=== PATIENT | male | born 1935 | race African-American/Black ===

== ENCOUNTER 2016-05-24 12:21 | Emergency (ER) | payer OTHER ==
[2016-05-24 12:40] VITALS: RESP 14; TEMP 97.5
--- NOTE | 2016-05-24 14:11 | UCPHY ---
H & P Patient Type: New Chief Complaint Nursing Narrative: tired, fatigue and BP of 180/80 this AM. Had the flu 2 weeks ago. Time Seen by Provider: 05/24/16 13:52 HPI/ROS: This patient presents with a chief complaint of extreme fatigue and weakness which has been present for several weeks. He denies other symptoms as reflected in the review of systems below. Today at home his blood pressure was noted to be mildly elevated at 180 over 80. 2 weeks ago he was diagnosed with flu. REVIEW OF SYSTEMS: Constitutional: Extreme fatigue, malaise, no fever Eyes: No complaints ENT: Denies sore throat, nasal congestion, ear pain. Some itching to the left side of the face Respiratory: Mild cough, no shortness of breath Cardiac: Denies chest pain Gastrointestinal: Good appetite, denies nausea, vomiting, diarrhea, constipation Genitourinary: Denies symptoms Musculoskeletal: No myalgias, no calf pain, no leg swelling, Skin: Denies rash Neurological: Denies headache Source: Patient, RN notes reviewed Exam Limitations: Language barrier - Personal History Current Tetanus Diphtheria and Acellular Pertussis (TDAP): Unsure - Medical/Surgical History Hx Asthma: No Hx Chronic Respiratory Disease: No Hx Diabetes: No Hx Cardiac Disease: Yes Hx Renal Disease: No Hx Cirrhosis: No Hx Alcoholism: No Hx HIV/AIDS: No Hx Splenectomy or Spleen Trauma: No Other PMH: HTN, high cholesterol - Family History Significant Family History: No pertinent family hx - Physical Exam Exam: GENERAL: Well-appearing, well-nourished and in no acute distress. HEAD: Atraumatic, normocephalic. EYES: Pupils equal round and reactive to light, extraocular movements intact, sclera anicteric, conjunctiva are normal. ENT: nares patent, oropharynx clear without exudates. Moist mucous membranes. NECK: Normal range of motion, supple without lymphadenopathy or JVD. LUNGS: Breath sounds clear to auscultation bilaterally and equal. No wheezes rales or rhonchi. HEART: Regular rate and rhythm without murmurs, rubs or gallops. ABDOMEN: Soft, nontender, normoactive bowel sounds. No guarding, no rebound. No masses appreciated. EXTREMITIES: Normal range of motion, trace edema both lower extremities. No clubbing or cyanosis. NEUROLOGICAL: Cranial nerves II through XII grossly intact. Normal speech, normal gait. PSYCH: Normal mood, normal affect. SKIN: Warm, dry, normal turgor, no visible rashes or lesions. Constitutional: Initial Vital Signs Temperature (C) 36.4 C 05/24/16 12:34 Heart Rate 66 05/24/16 12:34 Respiratory Rate 14 05/24/16 12:34 Blood Pressure 166/66 H 05/24/16 12:34 O2 Sat (%) 95 05/24/16 12:34 O2 Delivery Mode Room Air Allergies/Adverse Reactions: No Known Allergies Allergy (Unverified 05/24/16 12:33) Home Medications: Medication Instructions Recorded HCTZ (*) 05/24/16 Lipitor 20 mg (*) 05/24/16 VITAMIN D 05/24/16 Medical Decision Making Differential Diagnosis: Because of this patient's fatigue is unclear at this time however could be secondary to his recovery from his recent influenza. There is no evidence of an acute infectious process, anemia, liver disease, electrolyte imbalance or renal disease. - Data Points Laboratory Results: Laboratory Results 05/24/16 14:15 05/24/16 14:15 05/24/16 05/24/16 14:15 14:15 WBC 5.90 10^3/uL 10^3/uL (3.80-9.50) RBC 4.73 10^6/uL 10^6/uL (4.40-6.38) Hgb 14.3 g/dL g/dL (13.7-17.5) Hct 42.7 % % (40.0-51.0) MCV 90.3 fL fL (81.5-99.8) MCH 30.2 pg pg (27.9-34.1) MCHC 33.5 g/dL g/dL (32.4-36.7) RDW 13.8 % % (11.5-15.2) Plt Count 259 10^3/uL 10^3/uL (150-400) MPV 10.6 fL fL (8.7-11.7) Neut % (Auto) 59.5 % % (39.3-74.2) Lymph % (Auto) 26.1 % % (15.0-45.0) [place] % (Auto) 9.8 % % (4.5-13.0) Eos % (Auto) 3.4 % % (0.6-7.6) Baso % (Auto) 0.7 % % (0.3-1.7) Nucleat RBC Rel Count 0.0 % % (0.0-0.2) Absolute Neuts (auto) 3.51 10^3/uL 10^3/uL (1.70-6.50) Absolute Lymphs (auto) 1.54 10^3/uL 10^3/uL (1.00-3.00) Absolute Monos (auto) 0.58 10^3/uL 10^3/uL (0.30-0.80) Absolute Eos (auto) 0.20 10^3/uL 10^3/uL (0.03-0.40) Absolute Basos (auto) 0.04 10^3/uL 10^3/uL (0.02-0.10) Absolute Nucleated RBC 0.00 10^3/uL 10^3/uL (0-0.01) Immature Gran % 0.5 % % (0.0-1.1) Immature Gran # 0.03 10^3/uL 10^3/uL (0.00-0.10) Sodium 142 mEq/L mEq/L (134-144) Potassium 3.9 mEq/L mEq/L (3.5-5.2) Chloride 102 mEq/L mEq/L (97-110) Carbon Dioxide 27 mEq/l mEq/l (22-31) Anion Gap 13 mEq/L mEq/L (8-16) BUN 10 mg/dL mg/dL (7-23) Creatinine 0.6 mg/dL L mg/dL (0.7-1.3) Estimated GFR > 60 Glucose 108 mg/dL H mg/dL (70-100) Calcium 9.1 mg/dL mg/dL (8.5-10.4) Total Bilirubin 0.5 mg/dL mg/dL (0.1-1.4) AST 19 IU/L IU/L (17-59) ALT 26 IU/L IU/L (21-72) Alkaline Phosphatase 54 IU/L IU/L (38-126) Total Protein 6.1 g/dL L g/dL (6.3-8.2) Albumin 3.3 g/dL L g/dL (3.5-5.0) TSH Pending Departure - Departure Disposition: Home, Routine, Self-Care Clinical Impression: Fatigue Qualifiers: Fatigue type: unspecified Qualified Code(s): R53.83 - Other fatigue Condition: Good Instructions: Fatigue (ED) Additional Instructions: The cause of your fatigue is unclear at this time. It could be related to the recent episode of influenza. If this persists more than 1 week you should follow-up with your primary care physician and if you do not have one, a name is provided to you in the page below. We will call you if the thyroid test is abnormal. Activity and diet as tolerated. Referrals: Patrica Morrison MD [Medical Doctor] - As per Instructions Manpreet Kearney DO [Doctor of Osteopathy] - As per Instructions - PQRS PQRS Measurement: Not applicable
[2016-05-24 14:20] LABS: % IMMATURE GRANULYOCYTES 0.5 % (0.0-1.1); ABSOLUTE IMMATURE GRANULOCYTES 0.03 10^3/uL (0.00-0.10); ADD DIFF? NO; ADD MORPH? NO; ADD SCAN? NO; ATYPICAL LYMPHOCYTE FLAG 0 (0-99); FRAGMENT RBC FLAG 0 (0-99); HEMATOCRIT 42.7 % (40.0-51.0); HEMOGLOBIN 14.3 g/dL (13.7-17.5); LEFT SHIFT FLG 0 (0-99); LIPEMIA HEMOLYSIS FLAG 80 (0-99); MEAN CELL HEMOGLOBIN 30.2 pg (27.9-34.1); MEAN CELL HEMOGLOBIN CONCENTR. 33.5 g/dL (32.4-36.7); MEAN CELL VOLUME 90.3 fL (81.5-99.8); MEAN PLATELET VOLUME 10.6 fL (8.7-11.7); PLATELET CLUMPS FLAG 10 (0-99); PLATELET COUNT 259 10^3/uL (150-400); RED BLOOD CELL COUNT 4.73 10^6/uL (4.40-6.38); RED CELL DISTRIBUTION WIDTH 13.8 % (11.5-15.2)
[2016-05-24 14:37] LABS: ALANINE AMINOTRANSFERASE 26 IU/L (21-72); ALBUMIN 3.3 g/dL (3.5-5.0); BILIRUBIN,TOTAL 0.5 mg/dL (0.1-1.4); CALCIUM 9.1 mg/dL (8.5-10.4); CARBON DIOXIDE 27 mEq/l (22-31); CHLORIDE 102 mEq/L (97-110); CREATININE 0.6 mg/dL (0.7-1.3); GLOMERULAR FILTRATION RATE > 60; GLUCOSE 108 mg/dL (70-100); TOTAL PROTEIN 6.1 g/dL (6.3-8.2)
[2016-05-24 14:46] LABS: ALKALINE PHOSPHATASE 54 IU/L (38-126); ANION GAP 13 mEq/L (8-16); ASPARTATE AMINOTRANSFERASE 19 IU/L (17-59); POTASSIUM 3.9 mEq/L (3.5-5.2); SODIUM 142 mEq/L (134-144)
[2016-05-24 15:04] VITALS: BP 167/78; PULSE 62; O2SAT 93
== END 2016-05-24 15:00 | disposition home or self-care (01) ==
LOC: CED 12:21
DX: R53.83 Other fatigue (principal)
CPT/HCPCS: 80053-PO; 84443-PO; 85025-PO; G0463-PO